=== PATIENT | male | born 1995 | race Caucasian/White ===

== ENCOUNTER 2023-06-24 08:23 | Emergency (ER) | payer BC ==
[~2023-06-24] VITALS: Ht 182.9 cm; Wt 81.6 kg
[2023-06-24] MEDS ORDERED: METOCLOPRAMIDE HCL 10 MG/2 ML VIAL IVP ONE (08:30)
[2023-06-24] MEDS ORDERED: MECLIZINE HCL 25 MG TABLET (ANITVERT) PO ONE (08:30)
--- NOTE | 2023-06-24 08:30 | NUR ---
Patient to ER bed 7 for evaluation. Side rails up. Report given to DEVANG Carias.
[2023-06-24 08:33] VITALS: BP_SYST 148; PULSE 79; RESP 18; TEMP 97.6; O2SAT 99
--- NOTE | 2023-06-24 08:45 | NUR ---
MD in to evaluate patient at this time.
[2023-06-24 09:04] LABS: ANION GAP 11 (5-15); CALCIUM 9.2 mg/dL (8.4-11.0); CHLORIDE 106 mmol/L (98-107); CREATININE 0.97 mg/dL (0.55-1.30); GFR AFRICAN AMERICAN 119 mL/min (>90); GLUCOSE 110 mg/dL (74-106); UREA NITROGEN, BLOOD 18 mg/dL (8-21)
[2023-06-24 09:11] LABS: ALANINE AMINOTRANSFERASE 25 U/L (12-78); ALBUMIN 4.9 g/dL (3.4-4.8); ASPARTATE AMINOTRANSFERASE 24 U/L (10-37); TOTAL BILIRUBIN 1.1 mg/dL (0.0-1.0)
[2023-06-24 09:18] LABS: BASOPHILS % (AUTO) 0.3 % (0.0-2.0); EOSINOPHILS # (AUTO) 0.1 K/uL (0.0-0.4); HEMOGLOBIN 16.8 g/dL (14.0-18.0); MEAN CORPUSCULAR HEMOGLOBIN 28 pg (27-31)
[2023-06-24 09:19] LABS: HEMATOCRIT 48.8 % (36-54); MEAN CORPUSCULAR VOLUME 81 fL (79.0-98.0); RED BLOOD CELL COUNT(AUTO) 5.99 MIL/uL (4.2-6.2)
[2023-06-24 09:20] LABS: EOSINOPHILS % (AUTO) 1.1 % (0.0-4.0); LYMPHOCYTES # (AUTO) 1.5 K/uL (1.0-5.5); LYMPHOCYTES % (AUTO) 18.7 % (20.5-51.5); MEAN CORPUSCULAR HGB CONC 34 % (32-36); MONOCYTES # (AUTO) 0.3 K/uL (0.0-1.0); NEUTROPHILS # (AUTO) 8.4 K/uL (1.8-7.7); NEUTROPHILS % (AUTO) 75.9 % (40.0-70.0); PLATELET COUNT (AUTO) 241 K/uL (130-430); RED CELL DISTRIBUTION WIDTH 13.2 % (9.0-15.0)
[2023-06-24 09:21] LABS: WHITE BLOOD COUNT (AUTO) 8.5 K/uL (4.8-10.8)
--- NOTE | 2023-06-24 09:30 | NUR ---
Patient had labs and radiology completed. IV started and meds given.
[2023-06-24] MEDS ORDERED: MECL-261 PO (09:51)
--- NOTE | 2023-06-24 10:17 | NUR ---
ECG completed at this time.
--- NOTE | 2023-06-24 10:35 | NUR ---
Patient given written and verbal discharge instructions and verbalizes understanding. ER MD discussed with patient the results and treatment provided. Patient in stable condition. ID arm band removed. IV catheter removed intact and dressing applied, no active bleeding. Rx of meclizine given. Patient educated on pain management and to follow up with PMD. Pain Scale 0/10. Opportunity for questions provided and answered. Medication side effect fact sheet provided.
== END 2023-06-24 10:35 | disposition home or self-care (01) ==
LOC: SED 08:23
DX: R42 Dizziness and giddiness (principal); R51.9 Headache, unspecified; R11.2 Nausea with vomiting, unspecified; Z79.899 Other long term (current) drug therapy
CPT/HCPCS: 99285; 96374; 70450; 71045; 80053; 85025; 84484; 36415; 76376; J8597; J2765